=== PATIENT | female | born 1990 | race Caucasian/White ===

== ENCOUNTER 2016-08-01 05:55 | Inpatient (IN) | payer MEDICAID ==
[~2016-08-01] VITALS: Ht 160 cm; Wt 90.8 kg
--- NOTE | ~2016-08-01 | FD ---
ADMIT: 08/01/2016 RM/LOC: 220 [facility] MR#: [id number] [address] [facility] [address] [place] [id number] JUAN DANIEL GONZALEZ [address] [place] [address] Final Diagnosis SEX: F AGE: 25 : 1990 ADMISSION DATE: 08/01/2016 DISCHARGE DATE: 08/03/2016 FINAL DIAGNOSES: 1. A 25-year-old 2, para 2 status post spontaneous vaginal delivery at 40 weeks 3 days. 2. GBS (group B streptococci) positive - treated with antibiotics. 3. Failed 1-hour glucose tolerance. Passed 3-hour glucose tolerance. 4. PPH ( hemorrhage). Estimated blood loss 400 mL. PROCEDURE: Spontaneous vaginal delivery. Trinidad Strong MD Resident / Martell Dukes MD / oliver JOB #: [id number] CC: Martell Dukes MD, Attending Physician Martell Dukes MD, Family Physician
[2016-08-04] MEDS ORDERED: MOTRIN-DPS800 MG PO (10:38)
[2016-08-04] MEDS ORDERED: NIPPLECREAM TP (10:38)
[2016-08-04] MEDS ORDERED: PRENATAL VIT1 TAB PO (10:38)
--- NOTE | 2016-08-28 09:38 | OR ---
ADMIT: 08/01/2016 RM/LOC: 220 [facility] MR#: [id number] [address] [place] [id number] JUAN DANIEL GONZALEZ [address] [place] [address] Operative/Delivery Room Report SEX: F AGE: 25 : 1990 SURGERY DATE: 08/01/2016 SURGEON: Martell Dukes MD PREOPERATIVE DIAGNOSIS: Term intrauterine at 40-3/7th weeks' estimated gestational age. POSTOPERATIVE DIAGNOSIS: Term intrauterine at 40-3/7th weeks' estimated gestational age. PROCEDURE: Spontaneous vaginal delivery. [employer]: Trinidad Strong MD Resident. INDICATIONS: The patient is a 25-year-old female, G2, P1, who presented at 40-3/7th weeks' estimated gestational age for elective induction of labor. The patient underwent a successful induction of labor, progressed through labor to complete. ANESTHESIA: IV . COMPLICATIONS: None. ESTIMATED BLOOD LOSS: 400 mL. FINDINGS: Viable male infant, 8 pounds 6 ounces with scores of 7 at 1 and 8 at 5 minutes. DESCRIPTION OF PROCEDURE: When the patient was noted to be complete and pushing, she was prepped and draped in the usual fashion in dorsal lithotomy position. 's head was allowed to deliver over an intact perineum. After ADMIT: 08/01/2016 RM/LOC: 220 [facility] MR#: [id number] [address] [place] [id number] JUAN DANIEL GONZALEZ E [address] [place] [id number] Operative/Delivery Room Report SEX: F AGE: 25 : 1990 restitution of the head, the neck was examined for nuchal cord and none was noted. The anterior followed by the posterior shoulders were delivered, followed by expulsion of the remainder of the . Mouth and nose were then cleared. The infant was placed on the maternal stomach in the care of nursing staff. After approximately a minute's time, cord was clamped x2 and cut. Placenta was then delivered, was intact with normal appearance. Uterine cervix was visualized and noted to be without lacerations or tears. Attention was then turned to the perineum where she was noted to have a small left-sided periurethral laceration which was hemostatic. No other vaginal or perineal lacerations were noted. The patient tolerated the procedure well and was taken to the recovery room in stable condition. All sponge, instrument, and needle counts were correct. Martell Dukes MD/ adelaida JOB #: [id number] CC: Martell Dukes, Attending Physician Martell Dukes, Family Physician
== END 2016-08-03 12:25 | disposition home or self-care (01) | DRG 774 ==
LOC: BC 05:55 → 2LDRP 05:55
PROVIDERS: ADMIT Obstetrics & Gynecology
PROC: 3E033VJ Introduction of Other Hormone into Peripheral Vein, Percutaneous Approach (ICD-10-PCS; principal; 2016-08-01)
PROC: 10907ZC Drainage of Amniotic Fluid, Therapeutic from Products of Conception, Via Natural or Artificial Opening (ICD-10-PCS; principal; 2016-08-01)
PROC: 10E0XZZ Delivery of Products of Conception, External Approach (ICD-10-PCS; principal; 2016-08-01)
DX: O48.0 Post-term pregnancy (principal); O72.1 Other immediate postpartum hemorrhage; O99.824 Streptococcus B carrier state complicating childbirth; O99.214 Obesity complicating childbirth; E66.9 Obesity, unspecified; O75.89 Other specified complications of labor and delivery; R11.2 Nausea with vomiting, unspecified; Z68.31 Body mass index [BMI] 31.0-31.9, adult; Z3A.40 40 weeks gestation of pregnancy; Z37.0 Single live birth